=== PATIENT | female | born 1980 | race Caucasian/White ===

== ENCOUNTER 2019-07-01 13:52 | Outpatient (CLI) | payer BC ==
--- NOTE | 2019-07-01 14:52 | MMO ---
Bilateral MAMMO Bilat Diag [facility]. CLINICAL HISTORY: Patient is 39 years old and is seen for diagnostic exam. The patient has the following family history of breast cancer: paternal aunt. The patient has no personal history of cancer. VIEWS: The views performed were: bilateral craniocaudal with tomosynthesis; bilateral mediolateral oblique with tomosynthesis; and bilateral mediolateral with tomosynthesis. FILMS COMPARED: The present examination has been compared to prior imaging studies performed at [facility] on 07/01/2019, and at [facility] on 04/14/2016. This study has been interpreted with the assistance of computer-aided detection. MAMMOGRAM FINDINGS: The breasts are heterogeneously dense, which could obscure a lesion on mammography. Finding 1: There is a stable oval mass with circumscribed margins seen in the right breast at 1 o'clock. Finding 2: There are no mammographic or sonographic abnormalities to explain the patient's reported left nipple discharge. The patient is referred back to her clinician. Negative imaging findings should not preclude further evaluation if clinical findings are suspicious. There are no suspicious masses, suspicious calcifications, or new areas of architectural distortion. IMPRESSION: FINDING 2: THERE ARE NO MAMMOGRAPHIC ABNORMALITIES TO EXPLAIN THE PATIENT'S REPORTED LEFT NIPPLE DISCHARGE. THE PATIENT IS REFERRED BACK TO HER CLINICIAN. NEGATIVE IMAGING FINDINGS SHOULD NOT PRECLUDE FURTHER EVALUATION IF CLINICAL FINDINGS ARE SUSPICIOUS. THE RESULTS OF THIS EXAM WERE SENT TO THE PATIENT. ACR BI-RADS Category 2 - Benign finding MAMMOGRAPHY NOTE: 1. A negative mammogram report should not delay a biopsy if a dominant of clinically suspicious mass is present. 2. Approximately 10% to 15% of breast cancers are not detected by mammography. 3. Adenosis and dense breasts may obscure an underlying neoplasm. Reported by: PAMELA CALDERÓN MD Electonically Signed: [id number]
--- NOTE | 2019-07-01 14:58 | ULT ---
LIMITED LEFT BREAST ULTRASOUND: DATE: 07/01/2019. PROVIDED CLINICAL HISTORY: Left breast discharge. FINDINGS: Limited sonographic interrogation was performed of the left breast in the retroareolar region. There is no evidence for significant focal ductal dilatation or evidence for intraductal mass. IMPRESSION: No sonographic abnormality is evident to explain the patient's left breast discharge. Negative sonog raphic findings should not preclude further evaluation of a clinically suspicious finding. The patie nt is referred back to her clinician. BIRADS category 1 - negative. POS: OFF
== END 2019-07-01 13:53 | disposition home or self-care (01) ==
LOC: BICMAMMO 13:52
PROVIDERS: ATTEND Physician Assistant
DX: N63.20 Unspecified lump in the left breast, unspecified quadrant (principal)
CPT/HCPCS: 77066; G0279

== ENCOUNTER 2020-04-12 09:20 | Day surgery (SDC) | payer BC ==
[2020-04-10 12:53] VITALS: BMI 25.6
[2020-04-12] MEDS ORDERED: PHENYLEPHRINE-NS 100 MCG/ML 10 ML SYRINGE ONE (09:26)
[2020-04-12] MEDS ORDERED: Dexamethasone 20 MG/5 ML VIAL ONE (09:26)
[2020-04-12] MEDS ORDERED: PROPOFOL 200 MG/20 ML VIAL ONE (09:26)
[2020-04-12] MEDS ORDERED: Ondansetron PF 4 MG/2 ML Vial ONE (09:26)
[2020-04-12] MEDS ORDERED: Lidocaine 1% PF 5 ML VIAL ONE (09:26)
[2020-04-12] MEDS ORDERED: EPHEDRINE 25 MG/5 ML SYRINGE ONE (09:26)
[2020-04-12] MEDS ORDERED: Lidocaine 2% Jelly 5 ML TUBE ONE (11:51)
[2020-04-12] MEDS ORDERED: Midazolam HCl 2 mg/2 ml Vial ONE ×2 (11:51→12:11)
[2020-04-12] MEDS ORDERED: Fentanyl 100 MCG/2 ML VIAL ONE ×3 (11:51→14:17)
[2020-04-12] MEDS ORDERED: Meperidine HCl/PF 25 MG/ML VIAL ONE (13:35)
[2020-04-12] MEDS ORDERED: Promethazine HCl 25 MG/ML VIAL ONE (13:43)
--- NOTE | 2020-04-13 13:33 | OP ---
DATE OF PROCEDURE: 04/12/2020 PREOPERATIVE DIAGNOSES: 1. Pelvic pain. 2. Uterine mass. 3. Menorrhagia. POSTOPERATIVE DIAGNOSIS: Submucous fibroid. PROCEDURE PERFORMED: Hysteroscopic myomectomy. ANESTHESIA: General LMA. [employer] SUPERVISOR SURGEON: None. COMPLICATIONS: None. DRAINS: None. PATHOLOGY: Uterine fibroid. ESTIMATED BLOOD LOSS: 10 mL. URINE OUTPUT: 250 mL of clear urine. FINDINGS: Fluid deficit 1 L, normal saline used as distention media. There was a submucous fibroid on a stalk. It appeared as a submucous fibroid that was coming down and filling almost the entire uterine cavity. There were no other abnormalities within the uterus. Bilateral tubal ostia were visualized. DESCRIPTION OF PROCEDURE: The patient was taken to the operating room where general anesthesia was obtained without difficulty. The patient was prepped and draped in a sterile fashion in a dorsal lithotomy position. A red rubber was used to drain the bladder and the speculum was placed in the vagina. The anterior lip of the cervix was grasped with single-tooth tenaculum. The cervix was then progressively dilated with Eligio dilators and the 5-mm hysteroscope was assembled and primed using normal saline as distention media. The hysteroscope was inserted into the uterus and photodocumentation was performed. The above findings were noted. At that time, a small incisor blade was used through the hysteroscopic operating channel and the mass in the uterus was brought out in small pieces through the incisor. The tissue was very dense and the fluid deficit was approximately 750. At that time, secondary to the need for continued removal of tissue, the hysteroscope was switched out for the larger hysteroscope and the larger blade for dense tissue, that required Hegar dilators above the usual 24-Pashto and the cervix was easily dilated up to accommodate the larger hysteroscope. The blade was then inserted and the mass was removed easily in its entirety and sent for final pathology. The hysteroscope was then removed and the tenaculum was removed off the cervix. The cervix was hemostatic with pressure. There was no active bleeding from the cervix. All instruments were removed from the vagina. The patient tolerated the procedure well. Sponge, lap, and needle counts correct x2. The patient was taken to Recovery in stable condition. The patient did not receive antibiotic prophylaxis prior to the procedure. Job ID: [id number]
== END 2020-04-12 16:05 | disposition home or self-care (01) ==
LOC: SDC 09:20
PROVIDERS: ATTEND Student in an Organized Health Care Education/Training Program
PROC: 0UB98ZZ Excision of Uterus, Via Natural or Artificial Opening Endoscopic (ICD-10-PCS; principal; 2020-04-12)
DX: D25.0 Submucous leiomyoma of uterus (principal); F17.210 Nicotine dependence, cigarettes, uncomplicated; Z79.899 Other long term (current) drug therapy; Z88.5 Allergy status to narcotic agent; Z88.8 Allergy status to other drugs, medicaments and biological substances; Z91.040 Latex allergy status
CPT/HCPCS: 36600; 86850; 86900; 86901; 88305; J1100; J2175; J2250; J2405; J2550; J2704; J3010

== ENCOUNTER 2022-06-06 08:20 | Outpatient (CLI) | payer BC | END 2022-06-06 08:21 | disposition home or self-care (01) | LOC: BICMAMMO 08:20 | PROVIDERS: ATTEND Student in an Organized Health Care Education/Training Program | DX: N63.10 Unspecified lump in the right breast, unspecified quadrant (principal) | CPT/HCPCS: 77066; G0279 ==